=== PATIENT | male | born 1990 | race Caucasian/White ===

== ENCOUNTER → 2019-01-02 | Outpatient (CLI) | payer BC ==
--- NOTE | 2019-01-02 16:02 | MR ---
EXAMINATION TYPE: MR knee RT wo con DATE OF EXAM: 01/02/2019 COMPARISON: None HISTORY: Rt knee pain x 4 mos TECHNIQUE: Multiplanar, multisequence imaging of the right knee is performed without IV contrast. FINDINGS: There is knee joint effusion. There is 3 x 1.5 cm popliteal cyst. The collateral ligaments are intact . There is no evidence of a fracture. Medial and lateral joint spaces are fairly normal. There is narro wing of the patellofemoral joint space. The anterior and posterior cruciate ligaments are intact. The medial and lateral menisci appear intac t. There is no focal bony destructive process. Collateral ligaments appear intact. IMPRESSION: Knee joint effusion with popliteal cyst. Mild patellofemoral osteoarthritic joint space narrowing. No evidence of meniscal or ligamentous tear.
== END | disposition home or self-care (01) ==
LOC: RADMRIMAIN 08:46
PROVIDERS: ATTEND Orthopaedic Surgery
DX: M17.31 Unilateral post-traumatic osteoarthritis, right knee (principal); M25.861 Other specified joint disorders, right knee